=== PATIENT | male | born 1965 ===

== ENCOUNTER 2023-05-29 05:55 | Day surgery (SDC) | payer OTHER ==
[~2023-05-29 05:55] MED LIST: LOSARTAN POTASS25 MG PO; SIMVAST PO
== END 2023-05-29 21:00 | disposition home or self-care (01) ==
LOC: CIR.AMB 05:55
PROVIDERS: ATTEND Colon & Rectal Surgery
DX: K60.3 Anal fistula (principal); K60.5 Anorectal fistula; Z20.822 Contact with and (suspected) exposure to COVID-19; E78.5 Hyperlipidemia, unspecified; I10 Essential (primary) hypertension